=== PATIENT | female | born 2000 | race Caucasian/White ===

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

== ENCOUNTER → 2018-02-01 | Outpatient (REF) | payer BC ==
[2018-02-01 13:35] LABS: APPEARANCE, URINE CLEAR (CLEAR); BACTERIA, URINE AUTO NEGATIVE (NEGATIVE); BILIRUBIN, URINE AUTO NEGATIVE (NEGATIVE); BLOOD, URINE BLOOD NEGATIVE (NEGATIVE); COLOR, URINE YELLOW (YELLOW); GLUCOSE, URINE (UA) AUTO NEGATIVE (NEGATIVE); KETONE, URINE AUTO NEGATIVE (NEGATIVE); LEUKOCYTE ESTERASE, URINE AUTO NEGATIVE (NEGATIVE); MUCUS, URINE SMALL (NEGATIVE); NITRITE, URINE AUTO NEGATIVE (NEGATIVE); PROTEIN, URINE AUTO NEGATIVE (NEGATIVE); RBC, URINE AUTO 1 /HPF (0-3); SPECIFIC GRAVITY URINE AUTO 1.012 (1.002-1.035); SQUAMOUS EPITHELIAL CELL UR AU 0 /HPF (0-6); UROBILINOGEN, URINE AUTO 0.2 mg/dL (0.0-2.0); WBC, URINE AUTO 7 /HPF (0-3)
== END ==
LOC: M SMT 12:57
DX: N39.0 Urinary tract infection, site not specified (principal)
CPT/HCPCS: 81001

== ENCOUNTER → 2018-02-22 | Outpatient (REF) | payer BC ==
[2018-02-22 17:56] LABS: APPEARANCE, URINE CLEAR (CLEAR); BACTERIA, URINE AUTO NEGATIVE (NEGATIVE); BILIRUBIN, URINE AUTO NEGATIVE (NEGATIVE); BLOOD, URINE BLOOD 1+ (NEGATIVE); COLOR, URINE YELLOW (YELLOW); GLUCOSE, URINE (UA) AUTO NEGATIVE (NEGATIVE); KETONE, URINE AUTO NEGATIVE (NEGATIVE); LEUKOCYTE ESTERASE, URINE AUTO NEGATIVE (NEGATIVE); MUCUS, URINE SMALL (NEGATIVE); NITRITE, URINE AUTO NEGATIVE (NEGATIVE); PROTEIN, URINE AUTO NEGATIVE (NEGATIVE); RBC, URINE AUTO 2 /HPF (0-3); SPECIFIC GRAVITY URINE AUTO 1.024 (1.002-1.035); SQUAMOUS EPITHELIAL CELL UR AU 1 /HPF (0-6); UROBILINOGEN, URINE AUTO 0.2 mg/dL (0.0-2.0); WBC, URINE AUTO 2 /HPF (0-3)
== END ==
LOC: M SMT 17:03
DX: N39.0 Urinary tract infection, site not specified (principal)

== ENCOUNTER → 2018-03-31 | Outpatient (CLI) | payer OTHER, BC ==
[~2018-03-31] MED LIST: CYSTO-CONRAY II 17.2% 250ML VIAL (Q9958) As Ordered
== END ==
LOC: M RADPRO 14:19
DX: N39.0 Urinary tract infection, site not specified (principal); Z53.9 Procedure and treatment not carried out, unspecified reason

== ENCOUNTER 2018-06-26 13:00 | Emergency (ER) | payer OTHER ==
[~2018-06-26] VITALS: Ht 162.6 cm; Wt 70.5 kg
[~2018-06-26 13:00] MED LIST changes: -CYSTO-CONRAY II 17.2% 250ML VIAL (Q9958) As Ordered; +FLUO40CA PO; +MACR100C43 PO; +MEDR1VL IM; +PYRI1TAB5 PO
[2018-06-26] MEDS ORDERED: NS 1,000 ML IV ONE (13:15)
[2018-06-26] MEDS ORDERED: METOCLOPRAMIDE INJ 10MG/2ML VIAL (J2765) IV ONE (13:30)
[2018-06-26 14:28] LABS: BLOOD UREA NITROGEN 10 MG/DL (7-18); CALCIUM LEVEL 9.6 MG/DL (8.5-10.1); CARBON DIOXIDE LEVEL 23 MEQ/L (21-32); CHLORIDE LEVEL 104 MEQ/L (98-107); CREATININE FOR GFR 0.58 MG/DL (0.55-1.30); GLUCOSE, FASTING 109 MG/DL (70-100); HCG, SERUM QUANTITATIVE 61610 MIU/ML; SODIUM LEVEL 136 MEQ/L (136-145)
[2018-06-26] MEDS ORDERED: DICL10TA PO (15:36)
[2018-06-26] MEDS ORDERED: REGL10TA6 PO (15:36)
[2018-06-26 15:40] VITALS: BP 105/54
== END 2018-06-26 15:44 | disposition home or self-care (01) ==
LOC: M ED 13:00
DX: O21.0 Mild hyperemesis gravidarum (principal); Z88.0 Allergy status to penicillin; Z88.1 Allergy status to other antibiotic agents; Z88.2 Allergy status to sulfonamides; Z3A.01 Less than 8 weeks gestation of pregnancy
CPT/HCPCS: 36415; 80048; 81001; 84702; 96374; 99284; J2765

== ENCOUNTER 2018-07-12 21:26 | Emergency (ER) | payer OTHER ==
[~2018-07-12] VITALS: Ht 162.6 cm; Wt 66.4 kg
[~2018-07-12 21:26] MED LIST changes: +DICL10TA PO; +REGL10TA6 PO
[2018-07-12] MEDS ORDERED: ONDANSETRON 4MG/2ML VIAL (J2405) IV ONE (22:15)
[2018-07-12] MEDS ORDERED: METOCLOPRAMIDE INJ 10MG/2ML VIAL (J2765) IV ONE (22:15)
[2018-07-12] MEDS ORDERED: NS 1,000 ML IV ONE (22:15)
--- NOTE | 2018-07-12 23:05 | REPVR ---
EXAM: US First Trimester, Transabdominal EXAM DATE/TIME: 07/12/2018 10:35 PM CLINICAL HISTORY: 18 years old, female; Pain; complicated by abdominal or pelvic pain; Generalized abdominal pain; First trimester; Gestational age or lmp: 9; ; Additional info: Preg abd pain TECHNIQUE: Real-time transabdominal obstetrical ultrasound of the maternal pelvis and a first trimester , less than 14 weeks 0 days, with image documentation. COMPARISON: RENAL US 02/10/2018 6:04 PM FINDINGS: GESTATION: Gestation: Intrauterine gestational sac. Heart rate: heartbeat of 182 beats per minute. Amniotic fluid: Amniotic and chorionic fluid are normal for gestational age. BIOMETRY: Beverly-Rump length: Beverly rump length is 24 mm suggesting an age of 9 weeks 1 day. The EDC is 02/13/2019. MATERNAL: Uterus: The uterus measures 8.0 cm in its cephalocaudad dimension and 5.7 x 8.3 cm in its AP and lateral dimensions. Cervix: Unremarkable. Right adnexa: Right ovarian cyst measuring 2.2 cm. Right ovarian blood flow is noted. Intraperitoneal: No intraperitoneal free fluid. IMPRESSION: 1. Single live intrauterine fetus with an estimated age of 9 weeks 1 day. The EDC is 02/13/2019. 2. Right ovarian cyst measuring 2.2 cm. Electronically signed by: Case Larson On 07/12/2018 23:04:31 PM
[2018-07-12 23:07] LABS: BASO % 0.1 % (0.0-1.0); EOS % 0.2 % (0.0-3.0); HEMOGLOBIN 15.3 g/dl (12.0-15.5); LYMPH # 1.5 10^3/uL (1.5-6.5); LYMPH % 16.2 % (24.0-44.0); MEAN CORPUSCULAR HEMOGLOBIN 28.9 pg (27.0-33.0); MEAN CORPUSCULAR HGB CONC 34.8 g/dl (32.0-36.5); MONO # 0.7 10^3/uL (0.0-0.8); MONO % 7.7 % (0.0-5.0); NEUTROPHILS # 7.1 10^3/uL (1.8-7.7); NEUTROPHILS % 75.6 % (36.0-66.0); PLATELET COUNT, AUTOMATED 272 10^3/uL (150-450); WHITE BLOOD COUNT 9.4 10^3/uL (4.0-10.0)
[2018-07-12 23:37] LABS: ALBUMIN 4.5 GM/DL (3.2-5.2); ALT/SGPT 39 U/L (12-78); BILIRUBIN,DIRECT 0.3 MG/DL (0.0-0.2); BLOOD UREA NITROGEN 8 MG/DL (7-18); CALCIUM LEVEL 9.5 MG/DL (8.5-10.1); CARBON DIOXIDE LEVEL 19 MEQ/L (21-32); CHLORIDE LEVEL 104 MEQ/L (98-107); CREATININE FOR GFR 0.56 MG/DL (0.55-1.30); GLUCOSE, FASTING 84 MG/DL (70-100); LIPASE 158 U/L (73-393); POTASSIUM SERUM 3.6 MEQ/L (3.5-5.1); SODIUM LEVEL 138 MEQ/L (136-145); TOTAL PROTEIN 7.5 GM/DL (6.4-8.2)
[2018-07-12] MEDS ORDERED: MACR100C43 PO (23:53)
[2018-07-12 23:57] VITALS: BP 98/64
[2018-07-13] MEDS ORDERED: NS 1,000 ML IV ONE
[2018-07-13] MEDS ORDERED: NITROFURANTOIN (MACROBID) 100 MG CAP PO ONE
== END 2018-07-13 00:24 | disposition home or self-care (01) ==
LOC: M ED 21:26
DX: O23.41 Unspecified infection of urinary tract in pregnancy, first trimester (principal); O21.0 Mild hyperemesis gravidarum; Z3A.09 9 weeks gestation of pregnancy; Z88.0 Allergy status to penicillin; Z88.1 Allergy status to other antibiotic agents; Z88.2 Allergy status to sulfonamides
CPT/HCPCS: 76801; 80048; 80076; 81001; 83690; 85025; 87086; 96361; 96374; 96375; 99284; J2405; J2765

== ENCOUNTER 2018-12-23 22:20 | Outpatient (CLI) | payer OTHER ==
[~2018-12-23] VITALS: Ht 162.6 cm; Wt 78.1 kg
[2018-12-23 22:44] VITALS: BP 107/73
== END 2018-12-23 23:20 | disposition home or self-care (01) ==
LOC: M LDO 22:20
PROVIDERS: ATTEND Obstetrics & Gynecology
DX: O26.893 Other specified pregnancy related conditions, third trimester (principal); Z3A.32 32 weeks gestation of pregnancy
CPT/HCPCS: 59025; G0378; G0463

== ENCOUNTER 2019-01-16 16:34 | Outpatient (CLI) | payer OTHER ==
[~2019-01-16] VITALS: Ht 162.6 cm; Wt 80.7 kg
[2019-01-16 16:47] VITALS: BP 121/62
[2019-01-16] MEDS ORDERED: ZANT150T40 PO (17:07)
[2019-01-16] MEDS ORDERED: MAPA500T2 PO (17:07)
[2019-01-16] MEDS ORDERED: PRENTAB9 PO (17:07)
--- NOTE | 2019-01-16 17:39 | IPNPDOC ---
Text Note Date of Service The patient was seen on 01/16/19. NOTE 18 yo at 35+5 weeks gestation presented to L&D with the complaint of intermittent contractions throughout the day that have been worsening. She denies any vaginal bleeding or leakage of fluid. She endorses excellent movement. Chaperoned by L&D RN Vitals - VSS, afebrile, normotensive, non tachycardic General - AAOX3, sitting up in bed, NAD Abdomen - Gravid uterus. No fundal tenderness. Cervix - cl/thick/high, posterior. Unchanged on exam 1 hour later. FHR tracing - Cat I tracing with moderate variability, +accels, no decels. Rare ctx on toco. Patient not in labor. Reassuring status. Discharged home with return p recautions. Follow up appointment scheduled for Thursday. Return to care sooner for any urgent concerns. All questions answered. DO Abdullahi VS,Julien, I+O VS, Julien, I+O Vital Signs Date Time Temp Pulse Resp B/P (MAP) Pulse Ox O2 Delivery O2 Flow Rate FiO2 01/16/19 16:47 99.7 86 20 121/62 (81) JOHN KINGSLEY DO Jan 16, 2019 17:39
== END 2019-01-16 17:52 | disposition home or self-care (01) ==
LOC: M LDO 16:34
PROVIDERS: ATTEND Obstetrics & Gynecology
DX: O47.03 False labor before 37 completed weeks of gestation, third trimester (principal); Z3A.35 35 weeks gestation of pregnancy
CPT/HCPCS: 59025; G0378; G0463

== ENCOUNTER 2019-01-21 19:47 | Outpatient (CLI) | payer OTHER ==
[~2019-01-21] VITALS: Ht 162.6 cm; Wt 82.3 kg
[~2019-01-21 19:47] MED LIST changes: +MAPA500T2 PO; +PRENTAB9 PO; +ZANT150T40 PO
[2019-01-21 19:57] VITALS: BP 121/68
[2019-01-21 20:12] VITALS: BP 113/63
== END 2019-01-21 21:15 | disposition home or self-care (01) ==
LOC: M LDO 19:47
PROVIDERS: ATTEND Obstetrics & Gynecology
DX: O36.8131 Decreased fetal movements, third trimester, fetus 1 (principal); Z3A.36 36 weeks gestation of pregnancy
CPT/HCPCS: 59025; G0378; G0463

== ENCOUNTER 2019-02-02 07:24 | Outpatient (CLI) | payer OTHER ==
[~2019-02-02] VITALS: Ht 162.6 cm; Wt 83.4 kg
[2019-02-02 07:44] VITALS: BP 130/73
--- NOTE | 2019-02-02 08:53 | IPNPDOC ---
Obstetrical Progress Note Date of Service Feb 02, 2019 Subjective HPI: 18yo at 38+1wks by 1st trimester US presents to triage for labor check. Pt is GBS Negative, Rh Positive; uncomplicated ; History of depression. Subjective: Pt reports painful contractions q7 minutes with pressure. Pt states she lost her mucous plug last night and the contractions have not stopped. She reports +FM, denies LOF/VB. Objective O: VSS VE: C/20%/-2 and posterior FHR 140s, moderate variability, + accels. 1x variable occurred outside of a contraction during an acceleration while patient readjusted her position; returned to baseline at 15 seconds (based on interpretation) back into an acceleration. Overall reactive and reassuring tracing. CTX q9 minutes, mild by palpation Vital Signs Date Time Temp Pulse Resp B/P (MAP) Pulse Ox O2 Delivery O2 Flow Rate FiO2 02/02/19 07:44 97.7 89 18 130/73 (92) Assessment and Plan Additional Comments A: Pt not in labor, Reactive NST P: Discharge home with precautions and instructions for comfort measures at home (bath, heating pad, tylenol, benadryl for rest). F/u at next ANTOINE/Centering visit in clinic or sooner LEN HAYDEN MESSER CNM Feb 02, 2019 08:53
== END 2019-02-02 08:45 | disposition home or self-care (01) ==
LOC: M LDO 07:24
PROVIDERS: ATTEND Registered Nurse Maternal Newborn
DX: Z36.89 Encounter for other specified antenatal screening (principal); O47.1 False labor at or after 37 completed weeks of gestation; Z3A.38 38 weeks gestation of pregnancy
CPT/HCPCS: 59025; G0378; G0463

== ENCOUNTER 2019-02-09 05:01 | Inpatient (IN) | payer OTHER ==
[~2019-02-09] VITALS: Ht 162.6 cm; Wt 83.4 kg
[2019-02-09] VITALS (32 sets, daily range): BP systolic 119–147; BP diastolic 59–81
[2019-02-09] MEDS ORDERED: LACTATED RINGER'S 1000 ML IV STA (07:29)
[2019-02-09] MEDS ORDERED: BUTORPHANOL 2 MG/ML INJ (J0595) IV ONE ×2 (07:45→11:45)
--- NOTE | 2019-02-09 07:46 | HPEPDOC ---
Obstetrical History & Physical General Date of Admission History of Present Illness 18 yo at 39+1 weeks gestation presented to L&D this AM for regular, painful contractions that have become significantly painful. She denies any vaginal bleeding or leakage of fluid. She endorses movement. She had her membranes swept in the clinic yesterday. Chief Complaint: Contractions, term Information Provided By: Patient Age: 18 : 1 Term: 0 Pre-term: 0 Abortions: 0 Livin Care Care: Good Care Dating Final EDC: Feb 15, 2019 Final EDC for Daily Update: Feb 15, 2019 Final EDC by: 1st trimester (US) (6+6 week US on 28Jun2018 set JADYN of [id number]) 1st Trimester Date: Jun 28, 2018 (6+6 week US on 28Jun2018 set JADYN of [id number]) Antepartum Course Diagnos(e)s Depression GERD Patient's brother had heart defect --> Patient's baby with normal echo Past Medical History Past Obstetrical History : Past Obstetrical History: Primgravida THAI MASSEUR History: No pertinent history Past Medical History Medical History Depression GERD Surgical History: Appendectomy, Tonsilectomy, Other (knee arthroscopy) Family History Significant Family History: No pertinent family hx Social History Marital Status: Family situation: Spouse/partner home Psychosocial History: Depression * Smoker: non-smoker Alcohol: Denies Drugs: denies Imunizations Tdap status: current Influenza Status: current Allergies Coded Allergies: Sulfa (Sulfonamide Antibiotics) (Verified Allergy, Intermediate, HIVES, 02/02/19) amoxicillin (Verified Allergy, Intermediate, HIVES, 02/02/19) cefaclor (Verified Allergy, Intermediate, HIVES, 02/02/19) clavulanic acid (Verified Allergy, Intermediate, HIVES, 02/02/19) Medications Scheduled No.137/Iron/Folic Acd ( Vitamin Tablet) 1 Each Tablet, 1 TAB PO DAILY Ranitidine Hcl (Zantac) 150 Mg Tablet, 150 MG PO BID Physical Examination Physical Examination GENERAL: Alert and oriented times three. ABDOMEN: Gravid and non-tender to touch. FETUS: Is vertex (VTX) by sterile vaginal examination (SVE) EXTREMITIES: No edema. Vital Signs/I&O Vital Signs Date Time Temp Pulse Resp B/P (MAP) Pulse Ox O2 Delivery O2 Flow Rate FiO2 02/09/19 05:23 97.9 71 18 136/76 (96) Laboratory Data Urine Culture: No Growth Pertinent Laboratoy Data Blood Type: B+ RBC Antibody Screen: Negative HIV: Negative Hepatitis B: Negative Hepatitis C: Unknown Rapid Plasma Reagin: Nonreactive Rubella: Immune Varicella: Immune Chlamydia/Gonorrhea: Negative Group B Streptococcus: Negative Quad Screen Test: Negative Cystic Fibrosis: Negative Glucose Tolerance Test: 104 Anatomy Ultrasound Placenta Location: Posterior Normal Anatomy: Yes Placenta Previa: No Steroid Therapy Steroid Therapy: No Vaginal Examination Dilation: 3 cm Effacement: 80% Station: -1 Cervical Consistency: Soft Cervical Position: Posterior Presentation: Cephalic presentation Position: Vertex (occiput) Assessment Heart Rate (FHR): 130 Variability: Moderate Accelerations: Positive Decelerations: None Tocometer Contractions: Yes Frequency: regular Duration: greater than 60 seconds Strength: palpated as moderate Assessment/Plan Assessment 18 yo at 39+1 weeks gestation presented to L&D in early labor. Plan Admit to L&D for expectant management of labor. Will augment as clinically indicated. No cervical change since about 0530 this AM, but she is extremely uncomfortable. Apply IV fluids. GBS negative. clear liquid diet. Patient may have epidural if desired. Anticipate . DO SANCHO Moore CHRISTOPHER J. DO Feb 09, 2019 07:46
[2019-02-09 08:09] LABS: BASO % 0.2 % (0.0-1.0); EOS % 0.2 % (0.0-3.0); HEMOGLOBIN 10.4 g/dl (12.0-15.5); LYMPH # 1.2 10^3/uL (1.5-6.5); LYMPH % 8.8 % (24.0-44.0); MEAN CORPUSCULAR HEMOGLOBIN 26.3 pg (27.0-33.0); MEAN CORPUSCULAR HGB CONC 32.5 g/dl (32.0-36.5); MEAN CORPUSCULAR VOLUME 80.8 fl (80.0-96.0); MONO # 0.9 10^3/uL (0.0-0.8); MONO % 6.8 % (0.0-5.0); NEUTROPHILS % 83.3 % (36.0-66.0); PLATELET COUNT, AUTOMATED 217 10^3/uL (150-450); RED BLOOD COUNT 3.96 10^6/uL (4.00-5.40); WHITE BLOOD COUNT 13.1 10^3/uL (4.0-10.0)
[2019-02-09] MEDS ORDERED: PANTOPRAZOLE 20 MG TAB PO ONE (09:00)
--- NOTE | 2019-02-09 09:50 | IPNPDOC ---
Text Note Date of Service The patient was seen on 02/09/19. NOTE Ms. Ahmadi received IV stadol and had some pain relief. However, her pain is now increasing again. Cervix: /, no significant change. FHR Cat I. I discussed augmentation with pitocin for slowed progress. Mary Lou is amenable. Epidural if and when patient desires. All questions answered. DO Abdullahi VS,Julien, I+O VS, Julien, I+O Laboratory Tests 02/09/19 07:45 Red Blood Count 3.96 L, Mean Corpuscular Volume 80.8, Mean Corpuscular Hemoglobin 26.3 L, Mean Corpuscular Hemoglobin Concent 32.5, Red Cell Distribution Width 13.7, Neutrophils (%) (Auto) 83.3 H, Lymphocytes (%) (Auto) 8.8 L, Monocytes (%) (Auto) 6.8 H, Eosinophils (%) (Auto) 0.2, Basophils (%) (Auto) 0.2, Neutrophils # (Auto) 11.0 H, Lymphocytes # (Auto) 1.2 L, Monocytes # (Auto) 0.9 H, Eosinophils # (Auto) 0.0, Basophils # (Auto) 0.0 Vital Signs Date Time Temp Pulse Resp B/P (MAP) Pulse Ox O2 Delivery O2 Flow Rate FiO2 02/09/19 08:27 18 02/09/19 08:02 98.8 90 140/81 (100) JOHN KINGSLEY DO Feb 09, 2019 09:50
[2019-02-09] MEDS ORDERED: LR 1,000 ML IV SCH (10:00)
[2019-02-09] MEDS ORDERED: OXYTOCIN DRIP 30 UNITS in APPROPRIATE DILUENT 1 EA IV SCH ×2 (10:00→17:24)
[2019-02-09] MEDS ORDERED: FENTANYL 2MCG/ML ROPIVACAINE 0.2% IN 0.9% NACL 100ML IVBAG As Ordered ONE (12:12)
--- NOTE | 2019-02-09 14:28 | IPNPDOC ---
Text Note Date of Service The patient was seen on 02/09/19. NOTE Presented to room for assessment of progress. She is comfortable with an ep idural in place, though she feels some pressure. Cervix: 8/C/0. AROM performed productive of clear fluid. FHR mostly Cat I with moderate variability, +accels. Occasional variable decels, though not consistent. Pitocin at 6mU. Continue to titrate to effect. Mary Lou is progressing well. DO Abdullahi VS,Julien, I+O VS, Julien, I+O Laboratory Tests 02/09/19 07:45 Red Blood Count 3.96 L, Mean Corpuscular Volume 80.8, Mean Corpuscular Hemoglobin 26.3 L, Mean Corpuscular Hemoglobin Concent 32.5, Red Cell Distribution Width 13.7, Neutrophils (%) (Auto) 83.3 H, Lymphocytes (%) (Auto) 8.8 L, Monocytes (%) (Auto) 6.8 H, Eosinophils (%) (Auto) 0.2, Basophils (%) (Auto) 0.2, Neutrophils # (Auto) 11.0 H, Lymphocytes # (Auto) 1.2 L, Monocytes # (Auto) 0.9 H, Eosinophils # (Auto) 0.0, Basophils # (Auto) 0.0 Vital Signs Date Time Temp Pulse Resp B/P (MAP) Pulse Ox O2 Delivery O2 Flow Rate FiO2 02/09/19 11:45 18 02/09/19 08:02 98.8 90 140/81 (100) JOHN KINGSLEY DO Feb 09, 2019 14:28
[2019-02-09] MEDS ORDERED: REFRIGERATOR IV KEYS XX PRN (15:00)
[2019-02-09] MEDS ORDERED: NALOXONE INJ 0.4 MG/1 ML VIAL (J2310) IV PRN (15:00)
[2019-02-09] MEDS ORDERED: EPIDURAL/PCA KEYS XX PRN (15:00)
[2019-02-09] MEDS ORDERED: LACTATED RINGER'S 1000 ML IV PRN (15:00)
[2019-02-09] MEDS ORDERED: diphenhydrAMINE INJ 50MG/ML VIAL (J1200) IV PRN (15:00)
[2019-02-09] MEDS ORDERED: EPIDURAL COMMENT XX SCH (15:00)
[2019-02-09] MEDS ORDERED: ONDANSETRON 4MG/2ML VIAL (J2405) IV PRN (15:00)
[2019-02-09] MEDS ORDERED: FENTANYL/ROPIVACAINE/NACL BAG 100 ML EPIDURAL SCH (15:00)
[2019-02-09] MEDS ORDERED: ePHEDrine SULFATE 25 MG/5 ML(5MG/ML) SYRINGE IV PRN (15:00)
--- NOTE | 2019-02-09 16:24 | IPNPDOC ---
Text Note Date of Service The patient was seen on 02/09/19. NOTE Intermittent variable decels on tracing, though moderate variability and overall reassuring. Cervix: C/C/+1. Will begin pushing shortly. DO Abdullahi VS,Julien, I+O VS, Julien, I+O Laboratory Tests 02/09/19 07:45 Red Blood Count 3.96 L, Mean Corpuscular Volume 80.8, Mean Corpuscular Hemoglobin 26.3 L, Mean Corpuscular Hemoglobin Concent 32.5, Red Cell Distribution Width 13.7, Neutrophils (%) (Auto) 83.3 H, Lymphocytes (%) (Auto) 8.8 L, Monocytes (%) (Auto) 6.8 H, Eosinophils (%) (Auto) 0.2, Basophils (%) (Auto) 0.2, Neutrophils # (Auto) 11.0 H, Lymphocytes # (Auto) 1.2 L, Monocytes # (Auto) 0.9 H, Eosinophils # (Auto) 0.0, Basophils # (Auto) 0.0 Vital Signs Date Time Temp Pulse Resp B/P (MAP) Pulse Ox O2 Delivery O2 Flow Rate FiO2 02/09/19 14:46 99.9 83 18 120/66 (84) JOHN KINGSLEY DO Feb 09, 2019 16:23
--- NOTE | 2019-02-09 17:27 | DNPDOC ---
[facility] Delivery Note Delivery Note DATE OF DELIVERY: 09Feb2019 at ~1700 PREDELIVERY DIAGNOSIS: 39+1 weeks gestation and labor POST DELIVERY DIAGNOSIS: Delivered. PROCEDURE: Spontaneous vaginal delivery DIRECTOR OF MARKETING OPERATIONS: Dr. Fernando ANESTHESIA: Epidural ESTIMATED BLOOD LOSS: 250 mL. FINDINGS: Viable female infant, 7lbs 1oz (3190 grams), Apgars 9/9 DELIVERY SUMMARY: Presented to room as patient felt strong urge to push. Fetus at +3 station. The bed was broken down and she was prepped for delivery. She began pushing and with excellent effort her delivered after only about 15 minutes. presentation was KAUSHAL with restitution to LOT. The right anterior shoulder delivered with gentle traction followed easily by the remainder of the body. The infant was dried and stimulated on the field and a bulb suction was used. The infant was then placed on the maternal abdomen and cried vigorously. The three vessel cord was then clamped and cut by the FOB after appropriate time delay. Third stage was then completed with gentle traction on the cord and it was productive of an intact placenta. The uterine fundus was firmed with massage and pitocin was administered via IV bolus. Inspection of the vagina, perineum, and cervix revealed a midline 1st degree perineal laceration and left sided sublabial abrasion. These were repaired in the usual fashion with 3-0 vicryl suture. There was excellent cosmesis and hemostasis after the repair. The fundus was palpated again and was firm. Sponge, instrument, and needle counts were correct X2. Mother and infant stable when I left the room. DO SANCHO Moore CHRISTOPHER J. DO Feb 09, 2019 17:27
[2019-02-09] MEDS ORDERED: IBUPROFEN 600 MG TAB PO PRN (17:30)
[2019-02-09] MEDS ORDERED: PROMETHAZINE 25 MG TAB PO PRN (17:30)
[2019-02-09] MEDS ORDERED: DIBUCAINE 1% OINTMENT 30GM TOP PRN (17:30)
[2019-02-09] MEDS ORDERED: ACETAMINOPHEN 500 MG TAB PO PRN (17:30)
[2019-02-09] MEDS ORDERED: ACETAMINOPHEN TAB 650MG DOSE (2X325MG) PO PRN (17:30)
[2019-02-09] MEDS ORDERED: RHOGAM 300 MCG (1500 IU) INJ (J2790) IM SCH (17:30)
[2019-02-09] MEDS ORDERED: MEASLES,MUMPS,RUBELLA VACCINE INJ (MMR-II) (90707) SC SCH (17:30)
[2019-02-09] MEDS: DOCUSATE SODIUM 100 MG CAP PO PRN (20:51)
[2019-02-10] MEDS: IBUPROFEN 800 MG TAB PO PRN ×3 (02:24→18:04)
[2019-02-10 06:21] VITALS: BP 113/52
--- NOTE | 2019-02-10 07:06 | IPNPDOC ---
Progress Note Date of Service: Feb 10, 2019 Progress Note Ms. Ahmadi is a 18 yo G1 now P1 who is PPD#1 s/p uncomplicated yesterday afternoon ~1700. She is recovering on the pickering. No acute events overnight. Mary Lou reports feeling well this morning. She is ambulating, voiding, tolerating a regular diet, and has minimal lochia. She has minimal pain. Vitals - VSS, afebrile (though tmax overnight 100.3), normotensive, non tachycardic General - AAOX3, sitting up in bed, NAD, pleasant and conversant Abdomen - Fundus firm at U-2. No fundal tenderness Extremities - No edema UO - appropriate Mary Lou is doing well and is making an appropriate recovery. Continue to encourage ambulation and . Continue routine care. Anticipate discharge home tomorrow. John Fernando, DO VS, I&O, 24H, Fishbone Vital Signs/I&O Vital Signs Date Time Temp Pulse Resp B/P (MAP) Pulse Ox O2 Delivery O2 Flow Rate FiO2 02/10/19 06:21 98.9 88 20 113/52 (72) 02/09/19 20:01 97 I&O- Last 24 Hours up to 6 AM 02/10/19 06:00 Intake Total 3890.7 ml Output Total 1000 ml Balance 2890.7 ml Laboratory Data 24H LABS Laboratory Tests 2 02/09/19 07:45: Immature Granulocyte % (Auto) 0.7, White Blood Count 13.1H, Red Blood Count 3.96L, Hemoglobin 10.4L, Hematocrit 32.0L, Mean Corpuscular Volume 80.8, Mean Corpuscular Hemoglobin 26.3L, Mean Corpuscular Hemoglobin Concent 32.5, Red Cell Distribution Width 13.7, Platelet Count 217, Neutrophils (%) (Auto) 83.3H, Lymphocytes (%) (Auto) 8.8L, Monocytes (%) (Auto) 6.8H, Eosinophils (%) (Auto) 0.2, Basophils (%) (Auto) 0.2, Neutrophils # (Auto) 11.0H, Lymphocytes # (Auto) 1.2L, Monocytes # (Auto) 0.9H, Eosinophils # (Auto) 0.0, Basophils # (Auto) 0.0, Nucleated Red Blood Cells % (auto) 0.0 02/09/19 07:46: Syphilis Serology NONREACTIVE 02/09/19 10:14: Serology Scanned Report Hepatitis B Testing CBC/BMP Laboratory Tests 02/09/19 07:45 Red Blood Count 3.96 L, Mean Corpuscular Volume 80.8, Mean Corpuscular Hemoglobin 26.3 L, Mean Corpuscular Hemoglobin Concent 32.5, Red Cell Distribution Width 13.7, Neutrophils (%) (Auto) 83.3 H, Lymphocytes (%) (Auto) 8.8 L, Monocytes (%) (Auto) 6.8 H, Eosinophils (%) (Auto) 0.2, Basophils (%) (Auto) 0.2, Neutrophils # (Auto) 11.0 H, Lymphocytes # (Auto) 1.2 L, Monocytes # (Auto) 0.9 H, Eosinophils # (Auto) 0.0, Basophils # (Auto) 0.0 JOHN FERNANDO DO Feb 10, 2019 07:06
[2019-02-10] MEDS: PRENATAL VITAMINS CHEWABLE TABLET PO SCH (07:41)
--- NOTE | 2019-02-10 11:28 | IPNPDOC ---
Obstetrical Progress Note Date of Service Feb 10, 2019 Subjective 18yo P1, PP Day #1 s/p uncomplicated last night, c/o 6/10 coccyx pain that is not resolving with tylenol, motrin, or ice/heat. She states that when she gets up to walk that the 'pain is excruciating'. Objective O: VSS Pain 6/10, constant, nothing makes pain better, no aggravating factors Pain elicited with palpation at coccyx, no other site Vital Signs Date Time Temp Pulse Resp B/P (MAP) Pulse Ox O2 Delivery O2 Flow Rate FiO2 02/10/19 06:21 98.9 88 20 113/52 (72) 02/09/19 20:01 97 Assessment and Plan Additional Comments A: Musculoskeletal pain s/p normal , no obvious injury P: Continue to monitor Percocet now and tonight, do not administer more the 3g of tylenol total reassess PRN Routine PP Care HAYDEN MESSER CNM Feb 10, 2019 11:28
[2019-02-10] MEDS ORDERED: PERCOCET 5MG/325MG TAB PO PRN (11:30)
[2019-02-10 17:48] VITALS: BP 115/69
[2019-02-10] MEDS: DOCUSATE SODIUM 100 MG CAP PO PRN (19:32)
[2019-02-11] MEDS: IBUPROFEN 800 MG TAB PO PRN (02:49)
[2019-02-11 06:00] VITALS: BP 100/50
[2019-02-11] MEDS ORDERED: DIBU10OI TOP (06:57)
[2019-02-11] MEDS ORDERED: ACET-683 PO (06:57)
[2019-02-11] MEDS ORDERED: IBUP80TA PO (06:57)
[2019-02-11] MEDS ORDERED: COLA100C5 PO (06:57)
[2019-02-11] MEDS: PRENATAL VITAMINS CHEWABLE TABLET PO SCH (07:24)
--- NOTE | 2019-02-11 17:47 | DSES ---
DATE OF ADMISSION: 02/09/2019 DATE OF DISCHARGE: 02/11/2019 A 18-year-old 1, now para 1 was admitted in active labor at 39 weeks of gestation. Had an epidural in place. Spontaneous vaginal delivery of a live- female , 7 pounds 1 ounce, 3190 grams, scores of 9 and 9 at one and five minutes, respectively. She had a first-degree tear with some labial laceration, which was oversewn in the usual fashion. On her second day, we discussed phlebitis, cystitis, mastitis, metritis, cellulitis, diet, exercise pain management, perineal breast, and wound care. Medications will be attempted be dispensed today; however [facility] is closed for 4 days. The rest of the examination unremarkable. Normocephalic, atraumatic. Neck: Full range of motion. Pupils equal and reactive to light. Distal pulses are symmetric. No evidence of deep vein thrombosis (DVT), pulmonary embolism (PE), or superficial phlebitis. Chest is clear bilaterally to bases. No wheezes or rhonchi. Abdomen is soft. Uterus 2 below. Lochia is moderate. Four-quadrant bowel sounds are noted. She has no urgency or frequency. No nausea, vomiting, diarrhea, or constipation. Her hemoglobin is 10.4, hematocrit 32.0, platelets are 217. Her discharge vital signs: Her blood pressure is 100/50, respirations are 16, pulse 83, temperature 98.4. All questions were answered. A 20-minute discussion. She is to make an appointment for 6 weeks at [facility], and she will be directed where to take the baby. The patient was satisfied and is anxious to go home. Breast-feeding is going well.
== END 2019-02-11 11:50 | disposition home or self-care (01) | DRG 807 ==
LOC: M LDO 05:01 → M LDI 09:50 → M OBS 20:00
PROVIDERS: ADMIT Obstetrics & Gynecology; ATTEND Obstetrics & Gynecology
PROC: 10E0XZZ Delivery of Products of Conception, External Approach (ICD-10-PCS; principal; 2019-02-09)
PROC: 0HQ9XZZ Repair Perineum Skin, External Approach (ICD-10-PCS; 2019-02-09)
DX: O70.0 First degree perineal laceration during delivery (principal); Z37.0 Single live birth; Z3A.39 39 weeks gestation of pregnancy